=== PATIENT | male | born 1940 | race Caucasian/White ===

== ENCOUNTER 2016-12-17 12:07 | Emergency (ER) | payer MEDICARE, OTHER ==
[~2016-12-17] VITALS: Ht 157.5 cm; Wt 79.0 kg
[2016-12-17 12:14] VITALS: Ht 157.5 cm; Wt 79.0 kg
--- NOTE | 2016-12-17 16:20 | ERA ---
ER Documentation Chief Complaint Date/Time DATE: 12/17/16 TIME: 16:19 Chief Complaint HAD VARICOUS VEINS ? SURGERY 3 WEEKS AGO, HAS LEFT LEG PAIN, LOPEZ, UNSTABLE B HPI This is a 76-year-old male with a past medical history of hypertension, hypothyroidism and varicose veins status post laser ablation recently who is now presenting with concerns of thrombosis in his varicose veins. He presented last week on Sunday to an outside hospital, where an ultrasound was performed that demonstrated a blood clot. He was reportedly supposed to start taking heparin injections at home twice a day in addition to bridging to Coumadin. It is unclear if he is received the doses as instructed, as the patient's daughter was confused about the instructions. He has received a few doses of heparin in addition to his Coumadin yesterday. There were concerns that the heparin and Coumadin dosing was very high, which concerned the family, so they wanted reevaluation and the emergency department where his surgeon practices. The patient states that the area of clot is nontender and less people are touching it. The patient has a secondary complaint of recent issues with his blood pressure and intermittent episodes of headache. His daughter reports that his pressures intermittently go very high before normalizing. The patient does endorse mild headache at times, but presently he feels fine. The patient currently denies headache or vision changes. He has no focal deficits. He has no weakness or numbness or tingling to the face or extremities. He has no chest pain or trouble breathing. He has no abdominal pain. He has no changes to bowel movements urination. ROS All systems reviewed and are negative except as per history of present illness. Allergies Allergies: Coded Allergies: No Known Allergy (Unverified , 12/17/16) PMhx/Soc History of Surgery: Yes (Laser ablation of varicose veins) Anesthesia Reaction: No Hx Neurological Disorder: No Hx Respiratory Disorders: No Hx Cardiac Disorders: Yes (Hypertension) Hx Psychiatric Problems: No Hx Miscellaneous Medical Probl: Yes (Hypothyroidism) Hx Alcohol Use: No Hx Substance Use: No Hx Tobacco Use: No FmHx Family History: No coronary disease, No diabetes Physical Exam Vitals Vital Signs Date Time Temp Pulse Resp B/P Pulse Ox O2 Delivery O2 Flow Rate FiO2 12/17/16 16:29 52 16 109/65 96 Room Air 12/17/16 12:14 98.1 53 18 121/69 99 Physical Exam Const: NAD Head: Atraumatic Eyes: Normal Conjunctiva ENT: Normal External Ears, Nose and Mouth. Neck: Full range of motion..~ No meningismus. Resp: Clear to auscultation bilaterally Cardio: Regular rate and rhythm, no murmurs Abd: Soft, non tender, non distended. Normal bowel sounds Skin: No petechiae or rashes Back: No midline or flank tenderness Ext: No cyanosis, or edema. Area of superficial thrombosis, 2cm hard tender discolored nodular lesion Neur: Awake and alert, Normal strength and sensation Psych: Normal Mood and Affect Result Diagram: 12/17/16 1650 12/17/16 165 Results 24 hrs Laboratory Tests Test 12/17/16 16:50 White Blood Count 5.810^3/ul Red Blood Count 4.5210^6/ul Hemoglobin 14.9g/dl Hematocrit 44.6% Mean Corpuscular Volume 98.7fl Mean Corpuscular Hemoglobin 33.0pg Mean Corpuscular Hemoglobin Concent 33.4g/dl Red Cell Distribution Width 12.6% Platelet Count 96718^3/UL Mean Platelet Volume 11.1fl Neutrophils % 56.1% Lymphocytes % 28.9% Monocytes % 8.1% Eosinophils % 5.5% Basophils % 0.9% Nucleated Red Blood Cells % 0.0/100WBC Neutrophils # (Manual) 3.310^3/ul Lymphocytes # 1.710^3/ul Monocytes # 0.510^3/ul Eosinophils # 0.310^3/ul Basophils # 0.110^3/ul Nucleated Red Blood Cells # 0.010^3/ul Sodium Level 139mmol/L Potassium Level 4.0mmol/L Chloride Level 103mmol/L Carbon Dioxide Level 27mmol/L Anion Gap 13 Blood Urea Nitrogen 19mg/dl Creatinine 1.00mg/dl Glucose Level 76mg/dl Calcium Level 9.1mg/dl Troponin I < 0.012ng/ml Procedures/MDM The patient's presenting with concerns of a superficial thrombus. Upon review of the medications, the patient was on lovenox and coumadin. He was seen at an outside hospital last Sunday and started on anticoagulation, but there was concerns about the anticoagulation dosing. An ultrasound was performed here to evaluate for DVT. It demonstrated venous thrombosis to the bilateral superficial saphenous veins, near the bifurcation of the femoral vein. I spoke with the patient's surgeon who recommended continuation of the lovenox. The patient was very concerned regarding her ability to manage so many medications. His surgeon recommended stopping the coumadin for now while continuing the lovenox and to follow up with the patient's physicians. He has plans to travel to [facility] for medical evaluation. He may follow up with those physicians or those here. The patient had a secondary complaint of fluctuating blood pressures. The patient's blood pressure was stable in the emergency department. The patient has been having headaches, but this too was resolved prior to arrival here. The patient is neurovascularly intact. I see no signs of hypertensive urgency or emergency. A cardiac workup was performed. EKG read by me: Rate/Rhythm: Sinus bradycardia and regular rhythm at a rate of 51 Intervals: Normal [employer]: Normal Impression: No evidence of ischemia or arrhythmia Patient's blood work was obtained and reviewed, demonstrating only a mild thrombocytopenia. His blood work will need to be monitored by his physicians. There was nothing requiring emergent intervention at this time. Trop negative The patient's chest x-ray revealed likely bibasilar atelectasis. After multiple extensive discussions with the patient's daughter, she expressed understanding of the plan. The patient is stable for discharge with close follow up and precautions with which to return to the ER. Departure Diagnosis: Primary Impression: Superficial thrombophlebitis Qualified Code: I80.02 - Thrombophlebitis of superficial veins of left lower extremity Additional Impressions: Hypertension Qualified Code: I10 - Hypertension, unspecified type Thrombocytopenia Bradycardia by electrocardiogram Condition: Stable KIMBERLY SANCHEZ MD Dec 17, 2016 16:20
[2016-12-17 16:29] VITALS: BP 109/65; PULSE 52; RESP 16
--- NOTE | 2016-12-17 16:42 | RADRPT ---
PROCEDURE: Portable chest x-ray. CLINICAL INDICATION: 76 years of age, male. Chest pain. TECHNIQUE: Portable AP view of the chest. COMPARISON: None available. FINDINGS: Cardiomediastinal contours are normal. Bibasilar lung opacity may represent atelectasis, aspiration or pneumonia. Lungs are otherwise zelda r. Negative for pleural effusion or pneumothorax. No acute bony abnormality. IMPRESSION: Bibasilar lung opacity may represent atelectasis, aspiration or pneumonia. RPTAT: HCTS Physician Cruzito Date Time Electronically viewed and signed by Rupinder Fuentes Physician on 12/17/2016 16:42 CS/
[2016-12-17 17:08] LABS: BASOPHIL # 0.1 10^3/ul (0.0-0.1); BASOPHILS % 0.9 % (0.0-2.0); EOSINOPHILS # 0.3 10^3/ul (0.0-0.5); EOSINOPHILS % 5.5 % (0.0-7.0); HEMATOCRIT 44.6 % (42.0-52.0); HEMOGLOBIN 14.9 g/dl (14.0-18.0); LYMPHOCYTES # 1.7 10^3/ul (0.8-2.9); LYMPHOCYTES % 28.9 % (15.0-51.0); MEAN CORPUSCULAR HGB CONC 33.4 g/dl (32.0-37.0); MEAN CORPUSCULAR VOLUME 98.7 fl (82.0-101.0); MEAN PLATELET VOLUME 11.1 fl (7.4-10.4); MONOCYTE # 0.5 10^3/ul (0.3-0.9); MONOCYTES % 8.1 % (0.0-11.0); NEUTROPHILS % 56.1 % (39.0-77.0); PLATELET COUNT 139 10^3/UL (140-415); POSITIVE DIFF @See below; RED BLOOD COUNT 4.52 10^6/ul (4.70-6.10); RED CELL DISTRIBUTION WIDTH 12.6 % (11.5-14.5); WHITE BLOOD COUNT 5.8 10^3/ul (4.8-10.8)
[2016-12-17 17:25] LABS: ANION GAP 13 (8-16); BLOOD UREA NITROGEN 19 mg/dl (7-20); CALCIUM 9.1 mg/dl (8.4-10.2); CARBON DIOXIDE 27 mmol/L (21-31); CHLORIDE 103 mmol/L (97-110); GLUCOSE 76 mg/dl (70-220); SODIUM 139 mmol/L (135-144)
[2016-12-17 17:43] LABS: TROPONIN-I < 0.012 ng/ml (0.00-0.12)
--- NOTE | 2016-12-17 17:58 | RADRPT ---
PROCEDURE: US left lower extremity veins. CLINICAL INDICATION: Left leg pain and swelling. TECHNIQUE: Multiple longitudinal and transverse images of the left lower extremity veins were obta ined with ferris scale and color Doppler imaging. The common femoral vein, femoral vein, and popliteal vein were evaluated. 2D grayscale measurements with compression sonography, pulsed Doppler, color D oppler, and pulsed Doppler with augmentation. COMPARISON: No prior studies are available for comparison. FINDINGS: The left common femoral, femoral and popliteal veins are normally compressible throughout. Color fl ow demonstrates normal filling of the vessels. Normal waveforms are visualized and there is normal response to augmentation. There is thrombosis of the left greater saphenous vein with lack of flow and lack of compressibility IMPRESSION: 1. No evidence of deep vein thrombosis involving the left lower extremity. 2. Thrombosis of the left greater saphenous vein. RPTAT: QQ .Hank Ramos MD, Date Time Electronically viewed and signed by .Hank Ramos MD, on 12/17/2016 17:58 .R/
--- NOTE | 2016-12-17 19:18 | RADRPT ---
PROCEDURE: Ultrasound of the right lower extremity venous system. CLINICAL INDICATION: Right leg pain and swelling, deep venous thrombosis TECHNIQUE: Avitia scale with and without compression, color doppler, spectral doppler of the venous system of the right lower extremity was performed. Venous augmentation maneuvers were utilized. COMPARISON: No prior studies are available for comparison. FINDINGS: Common femoral vein: Patent. Femoral vein: Patent. Popliteal vein: Patent. Calf veins: Patent. Superficial venous thrombosis of the greater saphenous vein is present. IMPRESSION: No evidence of a deep vein thrombosis within the right lower extremity. Superficial venous thrombosis of the right greater saphenous vein. RPTAT: AADD .Adeel Hummel MD, MD Date Time Electronically viewed and signed by .Adeel Hummel MD, on 12/17/2016 19:18 .B/
== END 2016-12-17 20:42 | disposition home or self-care (01) ==
LOC: E/R 12:07
DX: I80.02 Phlebitis and thrombophlebitis of superficial vessels of left lower extremity (principal); I10 Essential (primary) hypertension; D69.6 Thrombocytopenia, unspecified; R00.1 Bradycardia, unspecified; E03.9 Hypothyroidism, unspecified
CPT/HCPCS: 36415; 71010; 80048; 84484; 85025; 93005; 93971